=== PATIENT | male | born 1955 | race Caucasian/White ===

== ENCOUNTER 2024-08-19 04:39 | Emergency (ER) | payer OTHER ==
[~2024-08-19] VITALS: Ht 167.6 cm; Wt 78.0 kg
--- NOTE | 2024-08-19 04:58 | Physician Documentation ---
History of Present Illness ~ Chief Complaint: Nose bleed Stated Complaint: NOSE BLEED Time Seen by MD: 04:57 Source: patient HPI 68-year-old male, history of recurrent nosebleeds who presents with epistaxis He tells me that he has been getting recurrent nosebleeds his entire life. He tells me he has had cautery performed 4 times. He normally is able to stop the bleeding by holding pressure or tilting his head back. This morning, he developed a nosebleed. He denies any trauma to the nose. He was not able to get it to stop and so he was sent here to the emergency department. Currently, he is no longer having any bleeding. He denies any other symptoms at this time. He is not on blood thinners. Medication Reconciliation Allergies: Coded Allergies: clonazepam (Verified Allergy, Unknown, 08/19/24) phenobarbital (Verified Allergy, Unknown, 08/19/24) Review of Systems ENT: Reports: nose bleeding Neurological: Denies: dizziness Physical Exam Vital Signs: Temperature: 98.4, Source: Oral, Heart Rate: 68, Respiratory Rate: 19, BP: 115/69, Weight: 78.000 Physical Exam General: This is an older gentleman, sitting calmly in bed, does have dried blood on his face HEENT: Atraumatic, oropharynx is moist. Nose: The patient has some dried clotted blood around the left nare but no active bleeding. No bleeding from the right nare. I do not see an obvious source of bleeding or large polyp. Heart: Regular rate and rhythm, normal-appearing peripheral perfusion Lungs: normal work of breathing, normal oxygen saturation on room air Neuro: Alert and oriented, no focal deficits Psychiatric: Calm and cooperative with exam Progress Results/Orders Results/Orders Completed Orders - ARNULFO ARANDA MD Oxymetazoline Nasal [place] (Afrin Nasal S (08/19/24 05:05) Vital Signs 08/19/24 08/19/24 08/19/24 08/19/24 04:43 05:08 05:09 06:06 Temp 98.4 98.0 Pulse 68 68 87 Resp 19 19 19 16 B/P (MAP) 115/69 98/50 (66) 92/45 Pulse Ox 99 100 Medical Decision Making Assessment The patient presents with recurrent epistaxis, but by time of my evaluation his nosebleed has stopped. No dangerous findings on exam. He has no clinical findings to suggest anemia or acute blood loss anemia. He was observed here in the emergency department, during which time he had no further bleeding or other symptoms. He will be discharged home with Afrin, and a plan for nosebleed treatments in the future. He was encouraged to talk to his primary care doctor for a referral to ENT for further treatment of options. Return precautions given. Departure Time of Disposition: 05:37 Disposition: 01 HOME / SELF CARE / HOMELESS Impression: Primary Impression: Epistaxis Condition: Improved Discharge Instructions: Nosebleed, Adult Referrals: NO PRIMARY CARE PROVIDER (PCP) Education Educated: Patient Educated regarding: diagnosis, need for follow up Signature Scribe Signature: na Attestation: ARNULFO Alfredo MD August 19, 2024 04:57
[2024-08-19] MEDS: oxymetazoline 15 ML nasal spray NS ONE (05:05)
[2024-08-19 08:47] VITALS: BP 130/111; PULSE 68; RESP 16; TEMP 98; O2SAT 97
== END 2024-08-19 09:23 | disposition home or self-care (01) ==
LOC: ER 04:40
DX: R04.0 Epistaxis (principal)
CPT/HCPCS: 99285

== ENCOUNTER 2025-03-25 05:33 | Emergency (ER) | payer MEDICARE, BC, MEDICAID, OTHER ==
[~2025-03-25] VITALS: Ht 167.6 cm; Wt 82.0 kg
[~2025-03-25 05:33] MED LIST: ASPI81TA52 PO; ATOR-2 PO; CARB-78 PO; FINA5TAB11 PO; POTA-208 PO; SALM50DI2 INH; TAMSULOSIN PO
[2025-03-25 06:04] VITALS: TEMP 98.6
[2025-03-25 06:47] LABS: MEAN PLATELET VOLUME 7.0 FL (7.4-10.4); RED CELL DISTRIBUTION WIDTH 23.1 % (11.5-14.5)
[2025-03-25 06:52] LABS: APTT 24 SECONDS (22-32); INR 1.1 INR
[2025-03-25 06:58] LABS: CREATININE 0.79 MG/DL (0.60-1.10); TOTAL CARBON DIOXIDE 23.9 MMOL/L (24-32); eCRCL 77 ML/MIN; eGFR > 90 ML/MIN
--- NOTE | 2025-03-25 12:42 | Physician Documentation ---
History of Present Illness ~ Chief Complaint: Nose bleed Stated Complaint: MULTIPLE COMPLAINTS M BLS Time Seen by MD: 11:41 Primary Medical Doctor: [place] Verdin HPI 69-year-old male presents to the ER [place] EMS from [place] with chief complaint of epistaxis on left side. Patient has a PMS of chronic nosebleed since he was [age]. He reports blood dripping from nose. He notes he has not bled since going to the ER. Medication Reconciliation Allergies: Coded Allergies: clonazepam (Verified Allergy, Unknown, 03/19/25) phenobarbital (Verified Allergy, Unknown, 03/19/25) Scheduled Aspirin (Aspirin EC), 1 TAB PO DAILY, (Reported) Atorvastatin Calcium (Atorvastatin Calcium), 1 TAB PO DAILY, (Reported) Carbamazepine (Carbamazepine), 200 MG PO BID, (Reported) Finasteride (Finasteride), 1 TAB PO DAILY, (Reported) Potassium Chloride (Potassium Chloride), 1 TAB PO DAILY, (Reported) Salmeterol Xinafoate* (Serevent Diskus*), 1 PUFFS INH BID, (Reported) [Tamsulosin], 0.8 MG PO HS, (Reported) Discontinued Medications Clopidogrel Bisulfate (Clopidogrel), 1 TAB PO DAILY, (Reported) Past Medical History Past Surgical History: brain surgery Patient History: FH: cancer FATHER Alcohol Use: None Drug Use: none Review of Systems ROS As stated above in the HPI, otherwise all systems are reviewed and negative. Physical Exam Vital Signs: Temperature: 98.6, Source: Oral, Heart Rate: 63, Respiratory Rate: 20, BP: 128/68, Pulse Oximetry: 95, Weight: 82.000 Oxygen Flow Rate: 0 Physical Exam General: The patient is well developed, well nourished, nontoxic appearing and is in minor distress. Skin: [place], warm and dry with no rashes. HEENT: Head was normocephalic and atraumatic. Eyes - pupils equal, round, reactive to light and accommodation. Extraocular movements were intact. Conjunctivae were nonicteric. Ears - cerebrum in portion in ears bilaterally. dried blood in left nares, mouth oropharynx clear. There were no pharyngeal exudates or erythema. Neck: Supple and nontender. There was no jugular venous distention, lymphadenopathy, thyromegaly or masses. Chest: Clear to auscultation bilaterally without wheezes, rales or rhonchi. No accessory muscle use. No dullness to percussion. Heart: Rate regular and rhythmic. S1, S2. No murmurs. Palpation of the chest wall was normal. No rubs or thrills. Abdomen: Soft, nontender and nondistended. Hyperactive bowel sounds. No guarding or rebound. No hepatosplenomegaly or palpable masses. Extremities: No cyanosis, clubbing or edema. The patient moves all extremities. Pulses were equal and symmetric. Neurologic: Motor systems are grossly intact. Psychologic: The patient was oriented to person, place and time. The patient demonstrated appropriate judgement and insight. Procedures Nose Procedure Used: anterior packing Hemostasis Acheived: Yes Tolerated Procedure Well?: yes, no complications Procedure Note Nasal packing note. Progress Results/Orders Results/Orders Vital Signs 03/25/25 03/25/25 03/25/25 03/25/25 06:04 07:26 09:25 10:27 Temp 98.6 Pulse 66 65 65 62 Resp 18 18 22 18 B/P (MAP) 137/67 145/72 (96) 139/69 (92) 125/63 (83) Pulse Ox 98 96 93 97 O2 Flow Rate 0 0 0 0 03/25/25 03/25/25 11:27 12:40 Pulse 61 63 Resp 18 20 B/P (MAP) 122/59 (80) 128/68 (88) Pulse Ox 95 95 O2 Flow Rate 0 0 Laboratory Tests Test 03/25/25 06:22 03/25/25 06:28 Prothrombin Time 10.8 INR International Normalized Ratio 1.1 Activated Partial Thromboplast Time 24 Coagulation Comments White Blood Count 7.0 Red Blood Count 3.08 L Hemoglobin 7.7 L Hematocrit 24.7 L Mean Corpuscular Volume 80.3 Mean Corpuscular Hemoglobin 25.0 L Mean Corpuscular Hemoglobin Concent 31.1 L Red Cell Distribution Width 23.1 H Platelet Count 324 Mean Platelet Volume 7.0 L Neutrophils (%) (Auto) 72.6 Lymphocytes (%) (Auto) 11.1 L Monocytes (%) (Auto) 11.6 Eosinophils (%) (Auto) 4.1 Basophils (%) (Auto) 0.6 Neutrophils # (Auto) 5.0 Lymphocytes # (Auto) 0.8 L Monocytes # (Auto) 0.8 Eosinophils # (Auto) 0.3 Basophils # (Auto) 0.0 CBC Comment Sodium Level 141 Potassium Level 4.3 Chloride Level 109 H Carbon Dioxide Level 23.9 L Anion Gap 8 Blood Urea Nitrogen 17 Creatinine 0.79 Estimated GFR/1.73 m2 > 90 BUN/Creatinine Ratio 21.5 H Glucose Level 118 H Calcium Level 8.7 Total Bilirubin 0.1 Aspartate Amino Transf (AST/SGOT) 15 Alanine Aminotransferase (ALT/SGPT) 9 L Alkaline Phosphatase 57 Total Protein 6.2 L Albumin 2.8 L Globulin 3.4 Albumin/Globulin Ratio 0.8 L Chemistry Comments EKG/XRAY/CT/US/VASC/MRI Ultrasound : Interpreted By: radiologist Ultrasound of: other (Echo) Impression [address], [place], [place] - [address] ECHOCARDIOGRAM Patient: KAVITA NIELSEN Medical Record: [id number] [facility] : 1955, Age: 69 Sex: M Location: [address] Patient Status: ADM IN Service Date/Time: 03/20/25 Ordering Physician: XIMENA IYER DO Exam Name: ECHOCARDIOGRAM Technologist: Larry Eli APPROVED REPORT EXAM: Comprehensive 2D, Doppler, and color-flow Echocardiogram. Patient Location: [facility] Blood Pressure: 126/69 mmHg Heart Rate: 70 bpm Rhythm: NSR Indications Valve disease No mission analyst No previous echo 2D Dimensions LA Diam 4.3 cm IVSd 0.9 (0.7-1.1cm) LVDd 5.5 cm PWd 0.9 (0.7-1.1cm) IVSs 1.3 (0.8-1.2cm) LVDs 3.3 (2.5-4.0cm) Aortic Root(2D) 3.4 cm PWs 1.4 (0.8-1.2cm) LVOT Diameter 2.10 (1.8-2.4cm) LVEF(%) 69.9 (>50%) IVC 25.60 mm FS (%) 39.9 % SV 102.3 ml CO 7.9 L/min M-Mode Dimensions MV EPSS 0.4 (<0.5cm) Aortic Valve AoV Peak Chris. 210.3 cm/s AoV VTI 44.3 cm AO Peak GR. 17.7 mmHg AO Mean GR. 9 mmHg LVOT VTI 26.53 cm LVOT Peak Chris. 113.3 cm/s BRIAN(VTI)/BSA 2.08 cm2/m2 BRIAN (VTI) 2.08 cm2 AV DI 0.60 % Mitral Valve MV E Velocity 119.3 cm/s MV Peak Gr. 11 mmHg MV DECEL TIME 164 ms MV A Velocity 64.7 cm/s MV PHT 52 ms E/A Ratio 1.8 MVA (PHT) 4.23 cm2 MV VMax 162.6 cm/s TDI Medial E' P. V 18.75 cm/s E/Medial E' 6.4 Tricuspid Valve TR P. Velocity 259 cm/s RAP ESTIMATE 15 mmHg TR Peak Gr. 27 mmHg RVSP 42 mmHg Pulmonary Vein S1 Velocity 36.8 cm/s D2 Velocity 48.5 cm/s PVa Velocity 39.3 cm/s PVa Duration 116 msec LEFT VENTRICLE Normal LV size and wall thickness. Overall systolic function is normal. LVEF is 60-65%. RIGHT VENTRICLE RV appears mildly dilated with normal contractility. RVSP is estimated at 42 mmHG. ATRIA Left atrium is mildly dilated. AORTIC VALVE Probable trileaflet AV appears sclerotic without stenosis. No insufficiency by color and spectral flow Doppler. MITRAL VALVE Mild MV annular calcification without stenosis. Mild regurgitation by color and spectral flow Doppler. TRICUSPID VALVE TV appears structurally normal with trace regurgitation by color and spectral flow Doppler. PULMONIC VALVE Normal PV without stenosis, physiologic insufficiency by color and spectral flow Doppler. GREAT VESSELS The aortic root is normal in size. IVC is dilated and collapses greater than 50% with inspiration. PERICARDIUM There is no pericardial effusion. Other Information Study Quality: Adequate Conclusion Normal LV size and wall thickness. Overall systolic function is normal. LVEF is 60-65%. RV appears mildly dilated with normal contractility. RVSP is estimated at 42 mmHG. Left atrium is mildly dilated. Probable trileaflet AV appears sclerotic without stenosis. No insufficiency by color and spectral flow Doppler. Mild MV annular calcification without stenosis. Mild regurgitation by color and spectral flow Doppler. TV appears structurally normal with trace regurgitation by color and spectral flow Doppler. There is no pericardial effusion. Dictated by:CÉSAR CHAO MD Dictation date and time:03/20/251740 Electronically Signed by: CÉSAR CHAO MD Date and Time: 03/20/251741 Transcribed: INFINITT Transcribed: NO PRIMARY CARE PROVIDER~ cc: CÉSAR CHAO MD; XIMENA IYER DO ~ Departure Disposition: HOME / SELF CARE / HOMELESS Impression: Primary Impression: Acute anterior epistaxis Condition: Stable Discharge Instructions: Nosebleed, Adult Additional Instructions: Remove packing in 48 hours. Referrals: NO PRIMARY CARE PROVIDER (PCP) Education Educated: Patient Educated regarding: treatment Signature Scribe Signature: Scribed for Aureliano Riggins MD by Sohail Lyon . 03/25/25 12:51 Attestation: The note accurately reflects work and decisions made by me.Aureliano Riggins MD 03/25/25 12:42 AURELIANO RIGGINS MD Mar 25, 2025 12:42 SOHAIL RIGGINS Mar 25, 2025 12:45
[2025-03-25 15:04] VITALS: BP 134/71; PULSE 82; RESP 18; O2SAT 96
== END 2025-03-25 15:09 | disposition home or self-care (01) ==
LOC: ER 05:34
DX: R04.0 Epistaxis (principal); Z88.8 Allergy status to other drugs, medicaments and biological substances; Z79.899 Other long term (current) drug therapy; Z79.82 Long term (current) use of aspirin
CPT/HCPCS: 30901; 36415; 80053; 85025; 85610; 85730; 99284; 99285